=== PATIENT | female | born 1985 | race American Indian/Alaskan Native ===

== ENCOUNTER 2018-11-04 15:48 | Emergency (ER) | payer MEDICAID ==
[2018-11-04 16:29] LABS: BASO % 0.5 % (0.0-2.0); EOS # 0.1 K/uL (0.0-0.7); EOS % 1.2 % (0.0-4.0); LYMPH % 33.7 % (20.0-40.0); MEAN CORPUSCULAR HEMOGLOBIN 29.1 pg (27.0-31.0); MEAN CORPUSCULAR HGB CONC 32.7 g/dL (33.0-37.0); MEAN PLATELET VOLUME 7.6 fL (7.2-11.7); MONO # 0.6 K/uL (0.0-0.8); MONO % 10.4 % (0.0-10.0); NEUT # 3.3 K/uL (1.8-7.0); NEUT % 54.2 % (50.0-75.0); RBC 4.48 Mil/uL (3.80-5.20); RED CELL DISTRIBUTION WIDTH 12.9 % (11.5-14.5)
[2018-11-04 16:37] LABS: SQUAMOUS EPITHIAL 26 /hpf (0-5); URINE BACTERIA MANY (<OCC); URINE BILIRUBIN NEGATIVE (NEGATIVE); URINE BLOOD 3+ (NEGATIVE); URINE CLARITY Hazy (Clear); URINE COLOR Yellow (YELLOW); URINE GLUCOSE (UA) NORMAL (Normal); URINE LEUKOCYTE ESTERASE TRACE Leu/uL (Negative); URINE PROTEIN 1+ mg/dL (NEGATIVE)
[2018-11-04 16:46] LABS: BLOOD UREA NITROGEN 16 mg/dL (7-17); CALCIUM 9.3 mg/dl (8.6-10.4); GFR NON-AFRICAN AMERICAN > 60
--- NOTE | 2018-11-04 16:49 | C.PDOC ---
History Of Present Illness 33 y/o female pt LMP 09/26 presents to the ER c/o lower abdominal pain associated with vaginal bleeding with clots and dizziness. Pt reports she is positive for , she took 5 tests and all claim to be positive. Pt reports her vaginal bleeding is very heavy, she sued up 7 pads since this morning. Pt denies nausea, vomiting, syncope, fever, chills and URI sx. Chief Complaint (Nursing): Female Genitourinary History Per: Patient History/Exam Limitations: no limitations Onset/Duration Of Symptoms: Days Current Symptoms Are (Timing): Still Present Past Medical History Reviewed: Historical Data, Nursing Documentation, Vital Signs Vital Signs: Last Vital Signs Temp 97.8 F 11/04/18 15:57 Pulse 81 11/04/18 15:57 Resp 18 11/04/18 15:57 BP 105/71 11/04/18 15:57 Pulse Ox 99 11/04/18 15:57 Family History: States: Unknown Family Hx - Social History Hx Alcohol Use: No Hx Substance Use: No - Immunization History Hx Tetanus Toxoid Vaccination: Yes Hx Influenza Vaccination: No Hx Pneumococcal Vaccination: Yes Review Of Systems Except As Marked, All Systems Reviewed And Found Negative. Constitutional: Negative for: Fever, Chills Gastrointestinal: Positive for: Abdominal Pain (low). Negative for: Nausea, Vo miting Genitourinary: Positive for: Vaginal Bleeding (with clots). Negative for: Dysuria, Frequency, Incontinence, Hematuria Neurological: Positive for: Dizziness. Negative for: Other (syncope) Physical Exam - Physical Exam Appears: Well, Non-toxic, No Acute Distress Head: Atraumatic, Normacephalic Eye(s): bilateral: PERRL, EOMI, Other (conjunctiva clear) Oral Mucosa: Moist Throat: No Erythema, No Exudate, Other (uvula midline) Chest: Symmetrical Cardiovascular: Rhythm Regular, No Murmur, Other (normal S1 and S2) Respiratory: No Rales, No Rhonchi, No Wheezing, No Other (good air movement, lungs CTA b/l ) Gastrointestinal/Abdominal: Bowel Sounds (normal), Soft, Tenderness (lower abdomen on deep palpation) Back: No CVA Tenderness Pelvic: Other (dark red blood pulling in vaginal vault; unable to palpate cervix, nurse Rhonda present during entire exam) Extremity: Bilateral: Atraumatic, Normal Color And Temperature, Other (no cyanosis or edema ) Neurological/Psych: Oriented x3, Normal Motor (5/5 muscle strength ), Normal Sensation, Other (GCS 15, CN 2-12 intact, ) Gait: Steady ED Course And Treatment - Laboratory Results Result Diagrams: 11/04/18 16:24 11/04/18 16:24 O2 Sat by Pulse Oximetry: 99 (RA) Pulse Ox Interpretation: Normal - CT Scan/US transvaginal US Other Rad Studies (CT/US): Read By Radiologist, Radiology Report Reviewed CT/US Interpretation: Name:MONROE PURVIS Exam Date:Nov 04, 2018 5:42:23 PM EST. Modality Type:SD\US\OT\SR. Description:US - PELVIC TRANSVAGINAL. Gender:F Laterality:Not applicable. :84 Referring Physician:MARI RINALDI. EXAM: US Pelvis, Complete Lozano svaginal and Transabdominal. COMPARISON: None provided. CLINICAL HISTORY: Vaginal bleeding . TECHNIQUE: Transvaginal and transabdominal pelvic ultrasound (complete) with image documentation. FINDINGS: ENDOMETRIUM: Normal thickness. UTERUS/CERVIX: The uterus appears within normal limits. No uterine fibroid or other mass evident. No intrauterine gestation identified. RIGHT OVARY: Normal Doppler flow. No abnormal mass. LEFT OVARY: Normal Doppler flow. No abnormal mass. FREE FLUID: No free fluid. IMPRESSION: Unremarkable pelvic ultrasound. No intrauterine gestation. Medical Decision Making Medical Decision Making: Plan: -- blood bank -- chem lab -- blood work -- urine cx -- UA -- transvaginal Reassess: 19:10 Beta quant 6.3, other labs unremarkable, u/s neg for IUP. Discussed results of w/u with pt. Pt instructed to f/u with OB in 2 days. D/w pt possibility of early vs. dysfunctional uterine bleeding vs. other eitilogy that requires f/u w/OB for further evaluation and management. Discharge instructions provided w/information about bleeding w/ (not found on today's visit though) and DUB. Pt verbalized understanding of her d/c instructions. Pt states she has OBGYN in [place] and said she would f/u there. Disposition Counseled Patient/Family Regarding: Studies Performed, Diagnosis, Need For Followup - Disposition [facility]] [facility] [Outside] [facility] [Outside] Disposition: HOME/ ROUTINE Disposition Time: 19:20 Condition: STABLE Additional Instructions: YANIV CHILDRESS, thank you for letting us take care of you today. Your provider was Mari Rinaldi MD and you were treated for VAGINAL BLEEDING. The emergency medical care you received today was directed at your acute symptoms. If you were prescribed any medication, please fill it and take as directed. It may take several days for your symptoms to resolve. Return to the Emergency Department if your symptoms worsen, do not improve, or if you have any other problems. Please contact your doctor or call one of the physicians/clinics you have been referred to that are listed on the Patient Visit Information form that is included in your discharge packet. Bring any paperwork you were given at discharge with you along with any medications you are taking to your follow up visit. Our treatment cannot replace ongoing medical care by a primary care provider outside of the emergency department. The ultrasound did not show any . Your beta hcg ( hormone) was 6.3. You need to see your doctor in 2 days for repeat blood work. Thank you for allowing the [facility] team to be part of your care today. Instructions: Heavy Periods (DC), Bleeding With (DC) Forms: [email or web address] (Sierra Leonean), General Discharge Instructions - POA Present On Arrival: None - Clinical Impression Clinical Impression: Vaginal bleeding affecting early - Scribe Statement The provider has reviewed the documentation as recorded by the Scribe Lozano Do Provider Attestation: All medical record entries made by the Scribe were at my direction and persona lly dictated by me. I have reviewed the chart and agree that the record accurately reflects my personal performance of the history, physical exam, medical decision making, and the department course for this patient. I have also personally directed, reviewed, and agree with the discharge instructions and disposition.
[2018-11-04 18:36] VITALS: BP 119/76; PULSE 73; RESP 15; TEMP 98.3
[2018-11-04 19:02] VITALS: O2SAT 99
--- NOTE | 2018-11-05 08:28 | US ---
Date of service: 11/04/2018 HISTORY: vag bleeding, preg COMPARISON: None available. TECHNIQUE: Transabdominal and transvaginal pelvic ultrasound was performed. FINDINGS: UTERUS: Measures 8.9 x 5.4 x 5.9 cm. Anteverted, normal in size and appearance. No fibroid or other mass lesion seen. ENDOMETRIUM: Measures 4.0 mm in diameter. Normal in appearance. CERVIX: No cervical abnormality identified. RIGHT OVARY: Measures 3.4 x 2.3 x 2.8 cm. No solid mass. Normal flow. LEFT OVARY: Measures 3.5 x 1.8 x 4.6 cm. No solid mass. Normal flow. FREE FLUID: No significant free fluid noted. OTHER FINDINGS: None. IMPRESSION: No evidence of intrauterine gestational sac. Unremarkable pelvic ultrasound.
== END 2018-11-04 19:32 | disposition home or self-care (01) ==
LOC: C.ER 15:48
DX: O20.9 Hemorrhage in early pregnancy, unspecified (principal); Z3A.00 Weeks of gestation of pregnancy not specified

== ENCOUNTER 2018-12-13 19:06 | Emergency (ER) | payer MEDICAID | END 2018-12-14 00:12 | disposition home or self-care (01) | LOC: C.ER 12-14 00:12 ==

== ENCOUNTER 2019-02-01 23:15 | Emergency (ER) | payer SELFPAY ==
[2019-02-01 23:44] VITALS: RESP 16
[2019-02-02] MEDS ORDERED: Oxycodone/Acetaminophen 5/325 mg Tab PO STA (00:49)
[2019-02-02] MEDS ORDERED: Oxycodone/Acetaminophen 5/325 mg Tab ONE (00:55)
--- NOTE | 2019-02-02 01:07 | C.PDOC ---
History Of Present Illness 33 year old female presents to the ER complaining of right ankle pain after she slipped on ice and twisted her right ankle. Patient states she felt a snap in her ankle. Denies weakness or numbness. Time Seen by Provider: 02/01/19 23:44 Chief Complaint (Nursing): Lower Extremity Problem/Injury History Per: Patient History/Exam Limitations: no limitations Onset/Duration Of Symptoms: Hrs Current Symptoms Are (Timing): Still Present Recent travel outside of the [place]: No - Ankle/Foot Description Of Injury: Twisted Past Medical History Reviewed: Historical Data, Nursing Documentation, Vital Signs Vital Signs: Last Vital Signs Temp 97.9 F 02/01/19 23:33 Pulse 67 02/01/19 23:33 Resp 16 02/01/19 23:33 BP 102/65 02/01/19 23:33 Pulse Ox 100 02/01/19 23:33 - Medical History PMH: Anemia, Seizures Surgical History: Back Surgery (spinal fusion 2016) Family History: States: Unknown Family Hx - Social History Hx Alcohol Use: No Hx Substance Use: No - Immunization History Hx Tetanus Toxoid Vaccination: No Hx Influenza Vaccination: No Hx Pneumococcal Vaccination: No Review Of Systems Musculoskeletal: Positive for: Other (Right ankle pain) Skin: Negative for: Bruising Neurological: Negative for: Weakness, Numbness Physical Exam - Physical Exam Appears: Non-toxic Skin: Normal Color, Warm, Dry Head: Atraumatic, Normacephalic Eye(s): bilateral: Normal Inspection Extremity: Capillary Refill (<2 seconds), Other (Tenderness and swelling to right ankle, no deformity, ROM limited secondary to pain) Pulses: Left Dorsalis Pedis: Normal, Right Dorsalis Pedis: Normal Neurological/Psych: Oriented x3, Normal Speech, Normal Motor, Normal Sensation Gait: Unable To Assess ED Course And Treatment O2 Sat by Pulse Oximetry: 100 - Other Rad Right ankle x-ray X-Ray: Interpreted by Me, Viewed By Me Interpretation: Posterior malleolar fracture with no displacement. Progress Note: Podiatry resident paged with no answer. Toradol IM and percocet administered. X-ray showed positive fracture, patient placed in posterior leg splint by cp and checked by me, instructed in crutch walking/ non weight bear and advised to follow up with podiatry. Disposition Counseled Patient/Family Regarding: Diagnosis, Need For Followup, Rx Given - Disposition Referrals: [facility] [Outside] Kita Malcolm DPM [Staff Provider] - Podiatry Clinic [Outside] Disposition: HOME/ ROUTINE Disposition Time: 02:37 Condition: STABLE Additional Instructions: Elevate legs/ Apply ICE to area/ Follow up with DR Malcolm or call for appointment TAKE medications as directed Return to ER if severe pain, numbness, discoloration, cold foot or worse Prescriptions: Ibuprofen [Motrin] 600 mg PO Q6H #30 tab Instructions: Ankle Fracture (DC) Forms: [employer] (Niuean), Work Excuse - Clinical Impression Clinical Impression: Closed right ankle fracture - 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 - Scribe Statement The provider has reviewed the documentation as recorded by the Scribcarmine Rosado All medical record entries made by the Scribcarmine were at my direction and personally dictated by me. I have reviewed the chart and agree that the record accurately reflects my personal performance of the history, physical exam, medical decision making, and the department course for this patient. I have also personally directed, reviewed, and agree with the discharge instructions and disposition.
[2019-02-02 02:43] VITALS: BP 126/87; PULSE 93; TEMP 99
--- NOTE | 2019-02-02 12:11 | RAD ---
Date of service: 02/02/2019 PROCEDURE: Right Ankle Radiographs. HISTORY: Ankle pain, twisting injury COMPARISON: None available. FINDINGS: BONES: Bone alignment and mineralization are normal. There is an acute nondisplaced fracture in the posterior malleolus. JOINTS: Small joint effusion. Ankle mortise maintained. Talar dome intact SOFT TISSUES: There is mild periarticular soft tissue swelling. OTHER FINDINGS: None. IMPRESSION: Acute nondisplaced fracture in the posterior malleolus.
[2019-02-03 06:54] VITALS: O2SAT 100
== END 2019-02-02 02:56 | disposition home or self-care (01) ==
LOC: C.ER 23:15
DX: S82.891A Other fracture of right lower leg, initial encounter for closed fracture (principal); W00.0XXA Fall on same level due to ice and snow, initial encounter
CPT/HCPCS: 29515; 73610; 96372; 99283; J1885

== ENCOUNTER 2019-02-16 18:14 | Emergency (ER) | payer SELFPAY ==
[2019-02-16 18:34] VITALS: BP 113/73; PULSE 82; RESP 20; TEMP 97.8; O2SAT 98
--- NOTE | 2019-02-16 20:14 | C.PDOC ---
History Of Present Illness The patient is a 33 year old female who was evaluated in this ED on 02/02 after she sustained a twisting injury to her right ankle. Patient was diagnosed with a fracture and discharged with a posterior leg splint. Patient returns to the ED today stating the splint has been rubbing on her calf and making her feel uncomfortable. Patient denies any new trauma/injuries and does not offer any medical complaints at this time. Time Seen by Provider: 02/16/19 19:21 Chief Complaint (Nursing): Lower Extremity Problem/Injury History Per: Patient History/Exam Limitations: no limitations Onset/Duration Of Symptoms: Hrs Current Symptoms Are (Timing): Still Present Additional History Per: Patient Past Medical History Reviewed: Historical Data, Nursing Documentation, Vital Signs Vital Signs: Last Vital Signs Temp 97.8 F 02/16/19 18:31 Pulse 82 02/16/19 18:31 Resp 20 02/16/19 18:31 BP 113/73 02/16/19 18:31 Pulse Ox 98 02/16/19 18:31 - Medical History PMH: Anemia, Seizures Surgical History: Back Surgery (spinal fusion 2016) Family History: States: Unknown Family Hx - Social History Hx Alcohol Use: No Hx Substance Use: No - Immunization History Hx Tetanus Toxoid Vaccination: No Hx Influenza Vaccination: No Hx Pneumococcal Vaccination: No Review Of Systems Constitutional: Negative for: Fever, Chills, Weakness Musculoskeletal: Positive for: Other (right calf discomfort caused by splint ) Skin: Negative for: Rash Neurological: Negative for: Weakness, Numbness Physical Exam - Physical Exam Appears: Well, Non-toxic, No Acute Distress Skin: Normal Color, Warm, No Rash Extremity: Capillary Refill (less than 2 seconds ), Swelling (slight, to right foot and toes ), Other (posterior leg splint in place on right lower extremity. no erythema or signs of infection ) Pulses: Left Dorsalis Pedis: Normal, Right Dorsalis Pedis: Normal Neurological/Psych: Oriented x3, Normal Speech, Normal Sensation ED Course And Treatment O2 Sat by Pulse Oximetry: 98 (on RA ) Pulse Ox Interpretation: Normal Medical Decision Making Medical Decision Making: Progress: Current posterior leg splint was removed. New posterior splint with sugar tong splint applied to the right lower extremity by me. Patient tolerated well with no complications, and reports a relief in her discomfort. On reassessment, patient is resting comfortably, showing no signs of distress and is stable for discharge. 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 - Scribe Statement The provider has reviewed the documentation as recorded by the Scribe (Nely Aguilar) All medical record entries made by the Scribe were at my direction and personally dictated by me. I have reviewed the chart and agree that the record accurately reflects my personal performance of the history, physical exam, medical decision making, and the department course for this patient. I have also personally directed, reviewed, and agree with the discharge instructions and disposition.
== END 2019-02-16 21:00 | disposition home or self-care (01) ==
LOC: C.ER 18:14
DX: Z46.89 Encounter for fitting and adjustment of other specified devices (principal)